=== PATIENT | female | born 1930 | race Caucasian/White ===

== ENCOUNTER 2016-12-08 18:02 | Inpatient (IN) | payer MEDICARE ==
[~2016-12-08 18:02] MED LIST: ISOVUE-370 76%-LOCM 1 ML ONE
[2016-12-08 18:27] LABS: #Basophils 0.2 thou/uL (0.0-0.2); #Eosinphils 0.4 thou/uL (0.0-0.7); #Lymphocytes 2.5 thou/uL (1.20-3.40); #Monocytes 0.8 thou/uL (0.11-0.59); #Neutrophils 6.8 thou/uL (1.40-6.50); %Basophils 1.5 % (0.0-1.0); %Eosinophils 3.6 % (0.0-10.0); %Lymphocytes 23.4 % (21.0-51.0); %Monocytes 7.4 % (0.0-10.0); Hematocrit 43.5 % (36.0-47.0); Mean Platelet Volume 8.3 fL (7.4-10.4); Red Blood Cell (RBC) Count 4.35 mill/uL (4.20-5.40); White Blood Cell (WBC) Count 10.6 thou/uL (4.8-10.8)
[2016-12-08 18:36] LABS: PTT 26.9 SEC (22.9-36.1); Prothrombin Time 13.1 SEC (12.0-14.7)
[2016-12-08] MEDS ORDERED: Labetalol HCl 100 MG/20 ML VIAL ONE (18:46)
[2016-12-08 18:47] LABS: Troponin I 0.016 ng/mL (< 0.028)
[2016-12-08 18:48] LABS: ALT (SGPT) 50 U/L (8-55); AST (SGOT) 76 U/L (5-34); Alkaline Phosphatase 126 U/L (40-150); Anion Gap 18 mmol/L (10-20); BUN (Urea Nitrogen) 16 mg/dL (9.8-20.1); Bilirubin, Total 0.6 mg/dL (0.2-1.2); Calc. Creatinine Clearance 0 mL/min (70-130); Calcium 9.4 mg/dL (7.8-10.44); Carbon Dioxide 25 mmol/L (23-31); Chloride 95 mmol/L (98-107); Estimated GFR-MDRD 56; Globulin 4.6 g/dL (2.4-3.5); Lipase 78 U/L (8-78); Magnesium 1.6 mg/dL (1.6-2.6); Protein, Total 8.5 g/dL (6.0-8.3)
[2016-12-08] MEDS ORDERED: diphenhydrAMINE HCl 50 MG/ML 1 ML VIAL ONE (19:32)
[2016-12-08] MEDS ORDERED: methylPREDNISolone Sod Succ/PF 125 MG/2 ML VIAL ONE (19:32)
[2016-12-08] MEDS ORDERED: Famotidine/PF 20 mg/2ml Vial ONE (19:32)
--- NOTE | 2016-12-08 20:40 | CT ---
EXAM: NONCONTRAST HEAD CT 12/08/16 HISTORY: Stroke alert. Headache since this morning. Slurred speech. Left sided weakness. COMPARISON: 02/21/15. TECHNIQUE: Noncontrast head CT is performed from skull base to skull vertex. FINDINGS: No parenchymal hemorrhage. No extra-axial hematoma. No midline shift. Basilar cisterns are patent. A ge appropriate atrophy. Cortical hernandez-white matter differentiation is preserved. The ventricles and sulci are patent and symmetric. Confluent white matter hypodensities due to chronic small vessel ischemic changes are noted. Calvarium is intact. Atherosclerosis of the cavernous carotid arteries is noted. Adequate aeration o f the sinuses and mastoid air cells. There is asymmetric increased density in the right M1 segment. Increased density is not appreciated on the prior CT. IMPRESSION: Asymmetric increased hyperdensity in the right M1 segment. Hyperdensity is not appreciated on the pr evious CT. Further evaluation with CT angiogram of the [place] of [place] is recommended. Results of the study discussed with Dr. Chance, 12/08/16 at 6:36 p.m. Code CR POS: PPP
--- NOTE | 2016-12-08 21:08 | RAD ---
AP VIEW OF THE CHEST: 12/08/16 INDICATION: Chest pain. COMPARISON: Prior exam dated 12/21/15. FINDINGS: There is stable cardiomegaly. Mild scarring within the right mid lung is similar. Vascular calcifica tion in aortic arch is similar. No pleural effusion, air space consolidation or pneumothorax evident . Chronic osseous changes are similar. Calcified lymph nodes within the left axillar region is similar . This may also reflect intra-articular bodies within the subcoracoid recess. IMPRESSION: No acute cardiopulmonary abnormality. POS: LARRY
--- NOTE | 2016-12-08 21:24 | PDOC.EVN ---
Event Note - Event Note Event Note: [id number] h&p dictated 1. R/O CVA 2. htn 3. dm type 2 4. h/o stroke plan see orders
[2016-12-08 21:26] LABS: Bilirubin Negative (Negative); Blood, Urine Trace (Negative); Glucose, Urine (Dipstick) Negative (Negative); Ketone, Urine Negative (Negative); Nitrite Negative (Negative); Protein, Urine (Dipstick) Negative (Neg-Trace); Urobilinogen 0.2 mg/dL (0.2-1.0)
[2016-12-08 21:37] LABS: Bacteria/HPF 4+ HPF (None Seen); Hyaline Casts/LPF 0-3 HYALINE CAST LPF (0-3 Hyaline); RBC/HPF 0-3 HPF (0-3); Squamous Epithelial None Seen HPF (0-3)
[2016-12-08 21:48] LABS: Troponin I 0.016 ng/mL (< 0.028)
--- NOTE | 2016-12-08 23:06 | CT ---
EXAM: CT ANGIOGRAM OF THE HEAD CT PERFUSION 12/08/16 HISTORY: Left sided weakness, slurred speech. Interval development of hyperdensity in the right M1 segment on noncontrast head CT. COMPARISON: None. TECHNIQUE: CT angiogram of the [place] of [place] is performed in the axial plane. CT perfusion imaging is also p erformed in the axial plane. Three dimensional reformatted images are submitted for interpretation. FINDINGS: There is no pathologic enhancement of the brain parenchyma. Cortical hernandez-white matter differentiati on appears to be preserved. White matter hypodensities are redemonstrated, likely due to chronic sma ll vessel ischemic change. There is symmetric enhancement and luminal diameter of the distal cervical internal carotid arteries . There is atherosclerosis involving bilateral cavernous and paraclinoid internal carotid arteries. No significant stenosis. ANTERIOR CIRCULATION: Bilateral A1 segments have symmetric enhancement and luminal diameter. Bilateral M1 segments also tang ve symmetric enhancement and luminal diameter. The bilateral A2 segments are symmetric. Bilateral MC A branches are also symmetric. Distal cervical and intracranial vertebral arteries are unremarkable. The left and right PICA artery origins are appropriate. The vertebral arteries supply normal appearing basilar artery. Basilar art kb and P1 segments have appropriate enhancement and luminal diameter. CT PERFUSION: There is no evidence of increased mean transit time. No evidence of decreased blood flow or blood vo lume. No evidence of at risk brain. No evidence of infarct. IMPRESSION: 1. No evidence of thrombus in the right M1 segment. Previously suggested hyperdensity in the ri ght M1 segment on the noncontrast head CT may represent concentration of blood products versus ather osclerosis. 2. No abnormal findings on the perfusion CT. No at risk brain or completed infarct. 3. Results of the study discussed with Dr. Chance, 12/08/16 at 8:39 p.m. Code CR POS: PPP
[2016-12-09 00:03] VITALS: BMI 31.6
[2016-12-09] MEDS: Sodium Chloride 0.9% 1,000 ML IV SCH ×2 (00:31→15:12)
[2016-12-09 01:08] LABS: Troponin I 0.027 ng/mL (< 0.028)
--- NOTE | 2016-12-09 07:16 | HP ---
DATE OF ADMISSION: 12/08/2016 CHIEF COMPLAINT: Headache. HISTORY OF PRESENT ILLNESS: The patient is an 86-year-old female with past medical history of stroke, diabetes mellitus type 2, seizures, and hyperlipidemia, now brought to the hospital because of possible stroke-like symptoms. History obtained from the patient's family members and from the patient. According to the daughter and the caregiver, the patient was doing fine and around 11:00 this morning the patient started having severe headache. Since then, she was lethargic. Family went and saw the patient and the patient was found to have left side facial droop and right-sided weakness also, so patient was brought to the ER called for the admission around 8:40. ED physician did speak to the neurologist who recommended no TPA. The patient is currently lethargic. The patient denies any nausea, denies any vomiting, but complains of headache. Headache is all over, mildly in intensity. Denies any fever, denies any chills, denies any chest pain. The patient kept dosing off as the patient received Benadryl 50 mg in the ER for CT study. The patient denies any cough, denies sputum production. PAST MEDICAL HISTORY: As per HPI. PAST SURGICAL HISTORY: Left total knee replacement, bunionectomy, and back surgery. SOCIAL HISTORY: No smoking, no alcohol, no drugs. MEDICATIONS: Reviewed. FAMILY HISTORY: Positive for heart problems. REVIEW OF SYSTEMS: Constitutional: Denies any fever, denies any chills. Eyes : Denies any vision problems. Ears: Denies any hearing loss. Neck: Denies any neck pain. Cardiovascular: Denies any chest pain, denies any palpitations. Respiratory: Denies dyspnea. Gastrointestinal: Denies nausea or vomiting. Musculoskeletal: Denies any joint pains. Cranial Nerve System: Positive for headache, positive for left-sided facial droop, positive for right arm weakness. Psychiatric: History of some memory problems per family. Review of systems obtained from the patient and from the family members also. PHYSICAL EXAMINATION: CONSTITUTIONAL/VITAL SIGNS: At the time of H and P performed, blood pressure is 190/90, afebrile, respiratory rate 18, pulse ox 97%. GENERAL: The patient appears tired and lethargic. HEENT: Pupils are equal, round, and reactive to light. Anterior nares patent. Oral cavity: Teeth intact. Tongue is moist. NECK: No JVD. CARDIOVASCULAR: S1, S2 present. Regular rate and rhythm, no murmurs, rubs, no gallops. RESPIRATORY: No wheezing, normal effort, no rhonchi, no accessory muscle usage seen GASTROINTESTINAL: Soft, nontender, no guarding, no organomegaly, no masses felt. MUSCULOSKELETAL: Bilateral lower extremity, no edema. CRANIAL NERVE SYSTEM: Positive for lethargy, positive for mild left-sided facial droop appears some right lower extremity weakness also. PSYCHIATRIC: Mood is appropriate at this time. LABORATORY DATA: At the time of H and P performed, white count 10.6, hemoglobin 14.3, platelet count is 168. BMP shows sodium 134, potassium 4.3, chloride 95, CO2 of 25, BUN 16, AST 76, ALT 50, serum total protein 8.5. PT 13.1, INR 1. IMAGING: CT head positive for asymmetric increased hyperdensity in the right M1 segment seen. CTA neck, no evidence of thrombus by the ED physician, waiting for final report. ASSESSMENT AND PLAN: The patient is an 86-year-old female. 1. Transient ischemic attack versus possible cerebrovascular accident. Plan to admit the patient to the IMU for close monitoring. Plan to do neuro checks. Plan to consult Neurology to evaluate the patient. Plan to do MRI brain, carotid ultrasound and 2D echo. We will follow the patient closely. 2. Headache, p.r.n. Tylenol. 3. Hypertension, uncontrolled. We will monitor blood pressure closely. We will try to keep blood pressure systolic around 180s for now because of possible acute stroke. We will slowly titrate p.r.n. blood pressure medications. 4. Diabetes mellitus type 2. Monitor blood sugars closely. We will do insulin sliding scale. 5. History of stroke. Plan to start the patient on aspirin. The case was discussed in detail with the patient. The patient is FULL CODE and the patient's family is at the bedside also. SADIA
[2016-12-09] MEDS ORDERED: Aspirin 325 mg Enteric Coated Tablet PO SCH (09:00)
[2016-12-09] MEDS ORDERED: DARIFENACIN HYDROBROMIDE 15 MG PO SCH (09:00)
--- NOTE | 2016-12-09 09:15 | ULT ---
BILATERAL CAROTID DUPLEX ULTRASOUND: HISTORY: Slurred speech. Left-sided weakness. Headache. TECHNIQUE: Reyna-scale ultrasound with color-flow and spectral Doppler imaging of the extracranial carotid syste ms is performed bilaterally. FINDINGS: There is plaque formation on either side. The peak systolic velocity in the right ICA measures 60 cm per second with an end-diastolic velocity of 15 cm per second and a systolic ratio of 1.08. The peak systolic velocity in the left ICA measures 68 cm per second with an end-diastolic velocity of 6 cm per second and a systolic ratio of 1.15. Flow in both vertebral arteries remains antegrade. IMPRESSION: No evidence of hemodynamically significant stenosis. POS: OFF
[2016-12-09] MEDS: levETIRAcetam 500 MG TAB PO SCH ×2 (10:11→20:23)
[2016-12-09] MEDS: Lisinopril 5 MG TAB PO SCH (10:11)
[2016-12-09] MEDS: Aspirin 325 mg Enteric Coated Tablet PO SCH (10:11)
[2016-12-09] MEDS: Heparin 5,000 UNITS/ML VIAL SC SCH ×2 (10:11→20:23)
[2016-12-09] MEDS: Primidone 50 MG TAB PO SCH (10:12)
[2016-12-09] MEDS: TROSPIUM 20 MG TABLET PO SCH ×2 (10:13→20:24)
--- NOTE | 2016-12-09 14:26 | MRI ---
NONCONTRAST ENHANCED MRI IMAGES OF BRAIN HISTORY: The patient with new-onset stroke, new-onset seizures. Multiplanar, multisequence, noncontrast-enhanced MRI images of the brain obtained. FINDINGS: MRI images demonstrate some motion artifact degrading some of the image quality. Diffuse cortical a trophy and deep white matter ischemic changes seen. Normal flow voids seen in the major intracrania l vessels. Deep white matter ischemic changes seen. No evidence of areas of diffusion restriction seen. No estephania dence of significant abnormalities seen. IMPRESSION: Cortical atrophy and deep white matter ischemic changes. POS: ANAND
--- NOTE | 2016-12-09 15:10 | CON ---
DATE OF CONSULTATION: 12/09/2016 NEUROLOGIC CONSULTATION IMPRESSION: 1. Transient ischemic attack with transient left-sided weakness. 2. Aspirin failure. PLAN: 1. Add Plavix for the next 6 months. 2. Office followup. HISTORY OF PRESENT ILLNESS: Ms. Putnam is an 86-year-old white female with a past history of a stro ke several years ago as well as risk factors including diabetes, hypertension, and hyperlipidemia. She developed left-sided weakness yesterday. She was seen in the emergency room last night and her CT of the brain and CTA were both negative. Her symptoms have improved overnight. She had some hea dache last night as well. PAST MEDICAL HISTORY: As listed above. FAMILY HISTORY: Noncontributory. ALLERGIES: CODEINE, IODINE. SOCIAL HISTORY: No tobacco or alcohol use. REVIEW OF SYSTEMS: Otherwise, negative other than problems with tremor that she has had for several years. PHYSICAL EXAMINATION: GENERAL: She is bright and healthy appearing elderly lady sitting up in bed, in no distress. HEENT: Pupils equal and reactive. Conjunctivae clear. Oropharynx clear. NECK: Supple, no lymphadenopathy. EXTREMITIES: No cyanosis. NEUROLOGIC: She is alert and appropriate. Her speech is fluent and clear. Cranial nerves II-XII a re intact. Motor exam showed symmetric strength without fix or drift. Cerebellar testing showed no rmal finger to nose and rapid alternating movements. She had a postural tremor in both hands. Tone was normal bilaterally. Gait was not tested. Sensation was intact to light touch. Echocardiogram is pending. SUMMARY: This is an elderly lady with transient left-sided weakness consistent with a small vessel ischemic event. We would add Plavix and follow up with her in the office for management of her trem or.
--- NOTE | 2016-12-09 15:23 | PDOC.PN ---
- Subjective Encounter Start Date: 12/09/16 Encounter Start Time: 15:10 Subjective: f/u after ? TIA vs CVA. All studies negative for acute CVA and sx of -: dysarthria, L facial droop and L-sided weakness resolved. - Objective MAR Reviewed: Yes Vital Signs & Weight: Vital Signs (12 hours) Temp Pulse Resp BP Pulse Ox 12/09/16 10:11 74 12/09/16 08:00 98.0 F 74 20 98 12/09/16 07:17 98.0 F 74 20 139/42 L 98 12/09/16 04:01 98.2 F 72 20 106/41 L 100 Weight Admit Weight 173 lb Weight 173 lb I&O: 12/08/16 12/09/16 12/10/16 06:59 06:59 06:59 Intake Total 450 Output Total 400 Balance 50 Result Diagrams: 12/08/16 18:22 12/08/16 18:22 Radiology Reviewed by me: Yes (MRI Brain - no acute process, Carotids - neg for stenosis) EKG Reviewed by me: Yes (Tele - SR in 70's) Phys Exam - Physical Examination Constitutional: NAD HEENT: PERRLA, oral pharynx no lesions Neck: no JVD, supple Respiratory: no wheezing, clear to auscultation bilateral Cardiovascular: RRR Gastrointestinal: soft, non-tender, no distention, positive bowel sounds Musculoskeletal: no edema, pulses present Neurological: normal sensation, moves all 4 limbs Psychiatric: A&O x 3 Skin: normal turgor, cap refill <2 seconds Dx/Plan (1) Hypertensive emergency Code(s): I16.1 - HYPERTENSIVE EMERGENCY Status: Acute Comment: Resolved, serial BP monitoring, resume home BP meds (2) TIA (transient ischemic attack) Status: Acute Comment: Apparent with complete resolution likely due to HTN emergency, continue ASA and home BP regimen (3) Hypertensive encephalopathy Code(s): I67.4 - HYPERTENSIVE ENCEPHALOPATHY Status: Acute Comment: Resolved , see #1 above (4) DM II (diabetes mellitus, type II), controlled Code(s): E11.9 - TYPE 2 DIABETES MELLITUS WITHOUT COMPLICATIONS Status: Chronic Comment: Resume home Metformin 500mg BID, ISS (5) Hypothyroidism Code(s): E03.9 - HYPOTHYROIDISM, UNSPECIFIED Status: Chronic Comment: Restart Levothyroxine 25mcg daily, check TSH in am - Plan plan discussed w/ family, out of bed/ambulate, DVT proph w/SCDs Stable overall -: Resume home antihypertensive regimen -: Serial BP monitoring -: Transfer to Stroke Unit -: AM lab: TSH, B12/Folate * Likely home in am
[2016-12-09] MEDS ORDERED: HumaLOG 300 UNITS/3 ML VIAL SC PRN ×2 (15:28)
[2016-12-09] MEDS ORDERED: Dextrose 50% Abboject 50 ML SYRINGE SLOW IVP PRN (15:28)
[2016-12-09] MEDS ORDERED: Dextrose 5% in Water 1,000 ML IV PRN (15:28)
--- NOTE | 2016-12-09 15:40 | CON ---
DATE OF CONSULTATION: 12/09/2016 HISTORY OF PRESENT ILLNESS: Wendie Putnam is an 86-year-old female who was admitted to the [facility] with apparent weakness because she was having an evolving stroke. CT head was done in the ER, which did not show any obvious event. She had headache and left-sided weakness, which appears to be pretty much resolved this morning. De nies any chest pain or shortness of breath. She has been in this hospital before with a history of Parkinson disease. PAST MEDICAL HISTORY: Coronary artery disease, history of previous pulmonary emboli, previous cereb rovascular accident, diabetes, arthritis, hypothyroidism, and hyperlipidemia. PAST SURGICAL HISTORY: Gallbladder, back surgery, hysterectomy, appendix. MEDICATIONS: Her list of medicines is metformin 500 twice a day, Keppra 1000 twice a day, Catapres patch, Coumadin 7.5, Mysoline, Protonix, nitrofurantoin, metoprolol 25, lisinopril 5, and insulin. She was restarted back on heparin and aspirin. ALLERGIES: None. TOBACCO: None. REVIEW OF SYSTEMS: Otherwise, 10-point negative. PHYSICAL EXAMINATION: VITAL SIGNS: Blood pressure is 130/42, sats are 98% on 2 liters, respiratory rate 18, temperature 9 8. CHEST: Decreased breath sounds, no wheezing. CARDIAC: Normal S1-S2. ABDOMEN: Soft, no masses. NEUROLOGIC: Awake, alert, responsive, moves all 4 extremities. LABORATORY DATA: White count 10,000, H\T\H 11 and 34, platelet count normal. Electrolytes are norm al. CT, no evidence of any thrombus. No was seen. X-ray was normal. IMPRESSION: 1. Left-sided weakness, headache, probably transient ischemic attack. 2. Previous cerebrovascular accident. 3. Previous Parkinson's disease. 4. Previous pulmonary embolism. PLAN: She appears to be stable enough to be transferred to stroke unit. We will follow.
[2016-12-09] MEDS: Metoprolol Tartrate 25 MG TAB PO SCH (20:24)
[2016-12-09] MEDS ORDERED: Atorvastatin Calcium 40 MG TAB PO SCH (21:00)
[2016-12-10] MEDS: Sodium Chloride 0.9% 1,000 ML IV SCH ×2 (05:02→14:59)
[2016-12-10] MEDS ORDERED: Levothyroxine Sodium 25 MCG TAB PO SCH (06:00)
[2016-12-10] MEDS ORDERED: Furosemide 20 MG TAB PO SCH (09:00)
[2016-12-10] MEDS: levETIRAcetam 500 MG TAB PO SCH (09:15)
[2016-12-10] MEDS: Metoprolol Tartrate 25 MG TAB PO SCH (09:15)
[2016-12-10] MEDS: Aspirin 325 mg Enteric Coated Tablet PO SCH (09:15)
[2016-12-10] MEDS: Primidone 50 MG TAB PO SCH (09:16)
[2016-12-10] MEDS: Lisinopril 5 MG TAB PO SCH (09:16)
[2016-12-10] MEDS: TROSPIUM 20 MG TABLET PO SCH (09:16)
[2016-12-10] MEDS: Heparin 5,000 UNITS/ML VIAL SC SCH (09:32)
[2016-12-10 12:46] VITALS: TEMP 98.3
[2016-12-10 16:14] VITALS: BP 159/49
--- NOTE | 2016-12-10 17:26 | PRG ---
DATE OF SERVICE: 12/10/2016 SUBJECTIVE: Wendie Putnam was transferred from MICU to stroke Unit. She denies any chest pain, sh ortness breath, coughing or weakness. In fact, she was walking with the help of physical therapy. Her left-sided weakness has improved. OBJECTIVE: VITAL SIGNS: Sats are 92% on 2 liters, respirations 18, temperature 98, and blood pressure 130/80. CHEST: Reveals no wheezing. CARDIAC: Normal S1, S2. No gallops. ABDOMEN: Soft, no masses. IMAGING: MRI of the head shows no acute CVA. IMPRESSION: 1. Left-sided weakness, probably transient ischemic attack. 2. Hypertension, resolved. PLAN: From the pulmonary standpoint view, disposition as per the primary care physician. We will f grisel at a distance. Please call if needed.
--- NOTE | 2016-12-11 00:03 | DIS ---
DATE OF ADMISSION: 12/08/2016 DATE OF DISCHARGE: 12/10/2016 DISCHARGE DIAGNOSES: 1. Transient ischemic attack, resolved. 2. Hypertension, labile. 3. Hyperlipidemia. 4. Grade 1/3 diastolic dysfunction with preserved ejection fraction of 50-55%. 5. Hypertensive emergency, resolved. 6. Hypertensive encephalopathy, resolved. 7. Diabetes mellitus type 2, stable. 8. Hypothyroidism, stable. 9. Seizure disorder, stable. CONSULTATIONS: Dr. Qamar New with Neurology Service. Dr. Johnson with Pulmonology Service. PERTINENT LABORATORY AND X-RAY FINDINGS: Basic metabolic profile within normal limits. Calcium 9.4 , magnesium 1.6, AST 76, ALT of 50, alkaline phosphatase 126. Troponin I negative x3. Total choles terol 168, triglycerides 86, HDL 61, LDL 90, lipase 78. Vitamin B12 level 955, folate 16.5. TSH 2. 7. CBC showed a white blood cell count of 10.6, hemoglobin 14.3, hematocrit 43.5, MCV 100, platelet count 168. Urine culture dated 12/09/2016, showed greater than 100,000 colonies of gram negative rods, possible mixed culture. CT of the brain without contrast dated 12/08/2016, showed asymmetric hyperdensity in the right M1 se gment. CT angiogram of the head and neck dated 12/08/2016, showed no evidence of thrombus in the ri ght M1 segment. No acute process identified. Portable chest x-ray dated 12/08/2016, showed no acute cardiopulmonary process. Carotid Doppler study dated 12/09/2016, showed no evidence of hemodynamically significant stenosis. A 2D transthoracic echocardiogram dated 12/09/2016 showed ejection fraction of 50-55%. Grade 1/3 d iastolic dysfunction. Moderate left atrial enlargement. MRI of the brain with contrast dated 12/09/2016 showed no evidence of acute CVA. Cortical atrophy a nd deep white matter ischemic changes noted. HOSPITAL COURSE: Patient was admitted to the stroke unit after initially presenting with left-sided weakness and headache consistent with a transient ischemic attack in the context of hypertensive em ergency and associated hypertensive encephalopathy. The patient underwent general stroke protocol a nd continued aspirin therapy. Patient also was evaluated by the Neurology Service with recommendati ons for dual antiplatelet therapy with Plavix 75 mg daily, in addition to aspirin. The patient was continued on Lipitor therapy and MRI imaging of the brain as stated previously, showed no acute intr acranial process. The patient was noted with hypertensive emergency with overall stabilization and improvement in blood pressure trend by the time of discharge. Due to patient's labile hypertension, recommendations were to increase lisinopril to 10 mg daily, and continue metoprolol 25 mg b.i.d. T he patient may need additional titration of her antihypertensive regimen on an ongoing basis after d ischarge. Overall, the patient remained clinically stable throughout the remainder of the hospital course, tolerating regular oral intake with telemetry monitoring showing a sinus mechanism without a cute arrhythmia or dysrhythmia. The patient is stable and ready for discharge on 12/10/2016. DISCHARGE MEDICATIONS: 1. Plavix 75 mg 1 tab p.o. daily. 2. Aspirin 81 mg 1 tab p.o. daily. 3. Lipitor 40 mg p.o. at bedtime. 4. Darifenacin 15 mg p.o. daily. 5. Folic acid 200 mcg p.o. daily. 6. Lasix 20 mg 1 tab p.o. daily. 7. Isosorbide mononitrate 30 mg p.o. daily. 8. Levothyroxine 25 mcg 1 tab p.o. daily. 9. Lisinopril 10 mg p.o. daily. 10. Lopressor 25 mg one tab p.o. b.i.d. 11. Primidone 100 mg p.o. daily. 12. Keppra 1000 mg p.o. b.i.d. 13. Glucophage 500 mg p.o. b.i.d. FOLLOWUP: The patient will follow up with Dr. Paty Medina, primary care provider within 7 days. T he patient will follow up with Dr. Qamar New with Neurology Service and to call his office for ap pointment time and date. CONDITION ON DISCHARGE: Stable. ACTIVITY: ad eryn. DIET: Heart healthy and ADA. CODE STATUS: FULL. DISPOSITION: Home, 12/10/2016. Total time preparing and coordinating discharge, 32 minutes.
[2016-12-15] MEDS ORDERED: cloNIDine 0.2mg/24 Hour PATCH TD SCH (09:00)
== END 2016-12-10 17:00 | disposition home or self-care (01) | DRG 69 ==
LOC: ERS 18:02 → IMCU/EMU 22:00 → 2SE 12-09 16:30
PROVIDERS: ADMIT Internal Medicine; ATTEND Internal Medicine
DX: G45.9 Transient cerebral ischemic attack, unspecified (principal); G20 Parkinson's disease; E11.9 Type 2 diabetes mellitus without complications; I16.1 Hypertensive emergency; G40.909 Epilepsy, unspecified, not intractable, without status epilepticus; I51.89 Other ill-defined heart diseases; E78.5 Hyperlipidemia, unspecified; Z96.652 Presence of left artificial knee joint; E03.9 Hypothyroidism, unspecified; Z86.711 Personal history of pulmonary embolism
CPT/HCPCS: 0042T; 36415; 36416; 70450; 70496; 70551; 71010; 80053; 80061; 81003; 81015; 82553; 82607; 82746; 83690; 83735; 84443; 84484; 85025; 85610; 85730; 87077; 87086; 87186; 93005; 93306; 93880; 94760; 96374; 96375; G8978-GP-CL; G8979-GP-CJ; G8996-GN-CI; G8997-GN-CI; J1200; J1644; J2930; S0028